=== PATIENT | female | born 1995 ===

== ENCOUNTER 2021-06-25 04:10 | Inpatient (IN) | payer MEDICAID, OTHER ==
[2021-06-25] MEDS ORDERED: OXYTOCIN DRIP 30,000 MILLIUNITS/500 ML BAG IV ONE (04:32)
[2021-06-25] MEDS ORDERED: LIDOCAINE (2%) 20 MG/1 ML VIAL 20 ML MDV INFILTRATI ONE ×2 (04:32→05:05)
[2021-06-25] MEDS ORDERED: LACTATED RINGERS 1,000 ML ONE (04:34)
[2021-06-25] MEDS ORDERED: miSOPROStol 200 MCG TAB ONE (04:43)
[2021-06-25] MEDS ORDERED: miSOPROStol 200 MCG TAB PR PRN (05:05)
[2021-06-25] MEDS ORDERED: ACETAMINOPHEN 325 MG TAB PO PRN ×2 (05:05→05:09)
[2021-06-25] MEDS ORDERED: LOPERAMIDE 2 MG CAP PO PRN (05:05)
[2021-06-25] MEDS ORDERED: MINERAL OIL 30 ML ORAL LIQD PO PRN (05:05)
[2021-06-25] MEDS ORDERED: fentaNYL 100 MCG/2 ML INJ IV PRN (05:05)
[2021-06-25] MEDS ORDERED: CARBOPROST TROMETHAMINE 250 MCG/1 ML INJ IM PRN (05:05)
[2021-06-25] MEDS ORDERED: OXYTOCIN 10 UNIT/1 ML INJ IM PRN (05:05)
[2021-06-25] MEDS ORDERED: TERBUTALINE 1 MG/1 ML INJ SUB-Q PRN (05:05)
[2021-06-25] MEDS ORDERED: BUTORPHANOL 2 MG/1 ML INJ IV PRN (05:05)
[2021-06-25] MEDS ORDERED: METHYLERGONOVINE MALEATE 0.2 MG/ML VIAL IM PRN (05:05)
[2021-06-25] MEDS ORDERED: ePHEDrine SULFATE 50 MG/1 ML INJ IV PRN (05:05)
[2021-06-25] MEDS ORDERED: MAGNESIUM HYDROXIDE (MOM) ORAL LIQD UDC PO PRN (05:09)
[2021-06-25] MEDS ORDERED: HYDROcodone/ACETAMINOPHEN 5-325 MG TAB PO PRN (05:09)
[2021-06-25] MEDS ORDERED: LANOLIN/ZINC/DIMETHICONE (LANSINOH) 7 GM TP PRN (05:09)
[2021-06-25] MEDS ORDERED: WITCH HAZEL/ GLYCERIN PAD TP PRN (05:09)
--- NOTE | 2021-06-25 05:14 | History and Physical Report ---
History of Present Illness Date of examination: 06/25/21 Date of admission: 06/25/21 04:10 Chief complaint: Contractions, labor. History of present illness: 25 year old presents with complaint of contractions and needing to push. Patient received care at [facility] and patient brings records with her. LMP 09/16/2020. EDC 06/23/2021. significant for the following: previous section and 1 successful , excessive weight gain during . labs are as follows: O+, antibody screen negative, rubella immune, hepatitis B surface antigen negative, HIV negative, RPR nonreactive, gonorrhea negative, chlamydia negative, AFP negative, 1 hour sugar test 99, GBS negative. Past History Past Medical History: no pertinent history Past Surgical History: section [employer] History: denies: abnormal PAP smear, chlamydia, gonorrhea, hepatitis B, hepatitis C, herpes, HIV, syphilis, trichomonas Family/Genetic History: cancer Social history: lives with family, full code. denies: smoking, alcohol abuse, prescription drug abuse, IV drug use - Obstetrical History Expected Date of Delivery: 06/23/21 Actual Gestation: 40 Week(s) 2 Day(s) : 3 Para: 2 Hx # Term Pregnancies: 2 Number of Pregnancies: 0 Spontaneous Abortions: 0 Induced : 0 Number of Living Children: 2 Medications and Allergies Allergies Allergy/AdvReac Type Severity Reaction Status Date / Time No Known Allergies Allergy Unverified 06/25/21 04:15 Active Meds: Active Medications Acetaminophen (Acetaminophen 325 Mg Tab) 650 mg PO Q4H PRN PRN Reason: Pain, Mild (1-3) Acetaminophen (Acetaminophen 325 Mg Tab) 650 mg PO Q4H PRN PRN Reason: Pain MILD(1-3)/Fever >100.5/[place] Hydrocodone Bitart/Acetaminophen (Hydrocodone/Acetaminophen 5-325 Mg Tab) 2 each PO Q6H PRN PRN Reason: Pain, Moderate (4-6) Butorphanol Tartrate (Butorphanol 2 Mg/1 Ml Inj) 1 mg IV Q2H PRN PRN Reason: Pain, Moderate(4-6) LABOR PAIN Carboprost Tromethamine (Carboprost Tromethamine 250 Mcg/1 Ml Inj) 250 mcg IM ONCE PRN PRN Reason: Uterine Bleeding Docusate Sodium (Docusate Sodium 100 Mg Cap) 100 mg PO BID JULIO C Ephedrine Sulfate (Ephedrine Sulfate 50 Mg/1 Ml Inj) 10 mg IV Q2M PRN PRN Reason: Hypotension Fentanyl (Fentanyl 100 Mcg/2 Ml Inj) 100 mcg IV Q2H PRN PRN Reason: Pain,Severe (7-10) LABOR PAIN Lactated Ringer's (Lactated Ringers) 1,000 mls @ 125 mls/hr IV DIRECT JLUIO C Oxytocin/Sodium Chloride (Pitocin/Ns 30 Unit/500ml) 30 units in 500 mls @ 40 mls/hr IV TITR JULIO C; Protocol Ibuprofen (Ibuprofen 600 Mg Tab) 600 mg PO Q6H JULIO C Lidocaine (Lidocaine (2%) 20 Mg/1 Ml Vial 20 Ml Mdv) 20 ml INFILTRATI ONCE ONE Stop: 06/25/21 05:06 Loperamide HCl (Loperamide 2 Mg Cap) 2 mg PO ONCE PRN PRN Reason: give with Hemabate Magnesium Hydroxide (Magnesium Hydroxide (Mom) Oral Liqd Udc) 30 ml PO HS PRN PRN Reason: Constipation Methylergonovine Maleate (Methylergonovine Maleate 0.2 Mg/Ml Vial) 0.2 mg IM ONCE PRN PRN Reason: Uterine Bleeding Mineral Oil (Mineral Oil 30 Ml Oral Liqd) 30 ml PO QHS PRN PRN Reason: Constipation Misoprostol (Misoprostol 200 Mcg Tab) 800 mcg MN ONCE PRN PRN Reason: Uterine Bleeding Multi-Ingredient Ointment (Lanolin/Zinc/Dimethicone (Lansinoh) 7 Gm) 1 applic TP PRN PRN PRN Reason: Sore Nipples Multivitamins/Iron/Calcium ( Amm94-Ju Fumarate-Folic Acid Vit Tab) 1 each PO QDAY JULIO C Oxytocin (Oxytocin 10 Unit/1 Ml Inj) 10 unit IM ONCE PRN PRN Reason: Uterine Bleeding Sodium Chloride (Sodium Chloride 0.9% 10 Ml Flush Syringe) 10 ml IV PRN NR Terbutaline Sulfate (Terbutaline 1 Mg/1 Ml Inj) 0.25 mg SUB-Q ONCE PRN PRN Reason: Hyperstimulation/Hypertonicity Witch Jodie/Glycerin (Witch Jodie/ Glycerin Pad) 1 each TP PRN PRN PRN Reason: Hemorrhoid/cleansing/soothing Review of Systems All systems: negative (contractions, need to push) - Vital Signs Vital signs: Vital Signs Pulse BP 73 118/62 06/25/21 04:51 06/25/21 04:51 Temp Pulse Resp BP Pulse Ox 98.2 F 80 18 138/73 06/25/21 05:06 06/25/21 05:02 06/25/21 05:06 06/25/21 05:02 - Physical Exam Abdomen: Positive: normal appearance, soft. Negative: distention, tenderness, guarding, rigidity Genitourinary (Female): Positive: normal external genitalia, normal perenium. Negative: perineal/vulvar lesions Vagina: Positive: normal moisture Uterus: Positive: enlarged. Negative: tender Anus/Rectum: Positive: normal perianal skin Extremities: Positive: normal. Negative: tenderness - Obstetrical FHR: category 1 Uterine Contraction Monitor Mode: External Cervical Dilatation: 8 Cervical Effacement Percentage: 90 station: 0 Uterine Contraction Pattern: Regular Uterine Contraction Intensity: Strong/Firm Results All other labs normal. Assessment and Plan A: at 40 weeks, 2 days. Active advanced labor. Previous section. Previous . GBS negative. P: Admit. EFM. Epidural. Notified MD that patient is here in active labor with previous section done in [place] and vertical incision on skin. MD en route to hospital.
--- NOTE | 2021-06-25 05:14 | Procedure Note ---
OB Delivery Note - Delivery Date of Delivery: 06/25/21 - Vaginal Delivery presentation: vertex Delivery position: OA Intrapartum events: precipitous labor- <3hr Delivery induction: none Delivery monitor: external FHT, external uterine Route of delivery: Delivery placenta: spontaneous Delivery cord: 3 umbilical vessels Episiotomy: none Delivery laceration: 1st degree Delivery repair: vicryl Anesthesia: local Delivery comments: Spontaneous vaginal delivery at 04:38 of liveborn female infant weighing 8 lb. 15 oz. over first degree perineal laceration with apgars of 8/9. No nuchal cord. Delivery facilitated by delivery of posterior arm. Baby placed skin to skin with mom immediately after delivery; baby dried with warm blankets and suctioned with bulb syringe. Spontaneous cry and respirations. 3 vessel cord double clamped and cut (delayed cord clamping). Baby taken to radiant warmer for further suctioning. Cord blood obtained. Spontaneous delivery of intact placenta and membranes by harvey mechanism at 04:42. EBL 300 cc. Pitocin to IV fluids after delivery of placenta. Fundus firm and midline. Small first degree perineal laceration repaired with 2-0 vicryl in usual sterile fashion. No other lacerations noted. Vaginal sweep negative. Sponge count correct. MD present in house.
[2021-06-25] MEDS ORDERED: LACTATED RINGERS 1,000 ML IV SCH (05:15)
[2021-06-25] MEDS ORDERED: OXYTOCIN DRIP 30 UNITS/500 ML BAG IV SCH (06:00)
[2021-06-25 06:38] LABS: Hematocrit 36.7 % (30.3-42.9); Hemoglobin 12.5 gm/dl (10.1-14.3); Mean Corpuscular HGB Conc 34 % (30-34); Mean Corpuscular Volume 90 fl (79-97); Platelet Count 243 K/mm3 (140-440); Red Blood Count 4.07 M/mm3 (3.65-5.03); Red Cell Distribution Width 15.7 % (13.2-15.2)
[2021-06-25] MEDS: PRENATAL VIT27-FE FUMARATE-FOLIC ACID VIT TAB PO SCH (10:17)
[2021-06-25] MEDS: DOCUSATE SODIUM 100 MG CAP PO SCH (10:17)
[2021-06-25] MEDS: IBUPROFEN 600 MG TAB PO SCH ×3 (10:17→23:51)
[2021-06-25 17:16] LABS: Hematocrit 35.8 % (30.3-42.9); Hemoglobin 12.1 gm/dl (10.1-14.3)
--- NOTE | 2021-06-26 11:03 | Progress Note ---
Assessment and Plan A: day 1 S/P . P: Continue routine care. Anticipate discharge home tomorrow if patient continues to do well. Subjective - Subjective Date of service: 06/26/21 Principal diagnosis: day 1 S/P Patient reports: appetite normal, voiding normally, pain well controlled, flatus, ambulating normally, no dizzy ambulation, no nauseated [place]: doing well Objective - Vital Signs Latest vital signs: Vital Signs Temp Pulse Resp BP Pulse Ox Pulse Ox 06/26/21 08:42 98.5 F 66 18 106/58 98 06/26/21 08:21 100 06/26/21 02:09 97.6 F 63 18 111/65 99 06/25/21 22:04 100 06/25/21 19:50 100 06/25/21 17:46 98.5 F 69 18 118/76 99 06/25/21 13:05 97.8 F 69 18 117/69 98 Intake and Output 06/25/21 06/26/21 06/26/21 23:59 07:59 15:59 Intake Total 1200 240 120 Balance 1200 240 120 Intake: Oral 600 240 120 Intake, Free Water 600 Other: Total, Intake Amount 120 120 120 # Voids Void 1 1 1 - Exam Cardiovascular: Present: Regular rate Lungs: Present: Clear to auscultation Abdomen: Present: normal appearance, soft, normal bowel sounds. Absent: distention, tenderness, guarding, rigidity Uterus: Present: normal, firm, fundal height below umbilicus. Absent: bogginess Extremities: Present: normal. Absent: tenderness, edema
[2021-06-26] MEDS: DOCUSATE SODIUM 100 MG CAP PO SCH (12:11)
[2021-06-26] MEDS: PRENATAL VIT27-FE FUMARATE-FOLIC ACID VIT TAB PO SCH (12:11)
[2021-06-26] MEDS: IBUPROFEN 600 MG TAB PO SCH ×2 (12:11→18:38)
[2021-06-27] MEDS: DOCUSATE SODIUM 100 MG CAP PO SCH ×2 (00:06→12:09)
[2021-06-27] MEDS: IBUPROFEN 600 MG TAB PO SCH ×3 (00:08→12:09)
--- NOTE | 2021-06-27 06:51 | Progress Note ---
Assessment and Plan A: day 2 S/P . P: Discharge patient home today. Discussed with patient discharge instructions and warning signs. Advised patient to continue taking her vitamins at home. Advised patient to avoid intercourse, lifting, housework, tub baths (patient may take showers). Advised patient to follow up at [facility] in 6 weeks. Patient voiced understanding of all instructions. Subjective - Subjective Date of service: 06/27/21 Principal diagnosis: day 2 S/P Patient reports: appetite normal, voiding normally, pain well controlled, flatus, ambulating normally, no dizzy ambulation, no nauseated : doing well Objective - Vital Signs Latest vital signs: Vital Signs Temp Pulse Resp BP Pulse Ox Pulse Ox 06/27/21 01:08 18 06/27/21 00:29 97.6 F 64 18 101/56 98 06/27/21 00:08 18 06/26/21 20:00 100 06/26/21 19:38 18 06/26/21 18:39 100 06/26/21 16:57 98.3 F 62 18 106/65 97 06/26/21 16:33 100 06/26/21 14:06 100 06/26/21 12:18 100 06/26/21 10:00 100 06/26/21 08:42 98.5 F 66 18 106/58 98 06/26/21 08:21 100 Intake and Output 06/26/21 06/26/21 06/27/21 15:59 23:59 07:59 Intake Total 360 840 240 Balance 360 840 240 Intake: Oral 120 480 Intake, Free Water 240 360 240 Other: Total, Intake Amount 120 480 # Voids Void 1 1 1 - Exam Cardiovascular: Present: Regular rate Lungs: Present: Clear to auscultation Abdomen: Present: normal appearance, soft. Absent: distention, tenderness, guarding, rigidity Uterus: Present: normal, firm, fundal height below umbilicus. Absent: bogginess, tenderness Extremities: Present: normal. Absent: tenderness, edema
--- NOTE | 2021-06-27 06:55 | Discharge Summary ---
Providers - Providers Date of Admission: 06/25/21 04:10 Date of discharge: 06/27/21 Attending physician: MELODY RIOS MD Primary care physician: MELODY RIOS MD Hospitalization Reason for admission: active labor Delivery: , Episiotomy: none Laceration: 1st degree Other procedures: none complications: none Discharge diagnosis: IUP at term delivered baby: female Pertinent studies: Labs Hospital course: Normal hospital course Condition at discharge: Good Disposition: DC-01 TO HOME OR SELFCARE - Discharge Diagnoses (1) Term delivered Status: Acute Plan - Provider Discharge Summary Activity: routine, no sex for 6 weeks, no heavy lifting 4 weeks, no strenuous exercise Diet: routine Instructions: routine Additional instructions: Continue taking your vitamins at home. Follow up at [facility] in 6 weeks. Call your doctor immediately for: * Fever > 100.5 * Heavy vaginal bleeding ( >1 pad per hour) * Severe persistent headache * Shortness of breath * Reddened, hot, painful area to leg or breast - Follow up plan Follow up: MELODY RIOS MD [Primary Care Provider] - 6 Weeks Forms: [facility] Discharge Summary, Discharge Signature Page
[2021-06-27] MEDS: PRENATAL VIT27-FE FUMARATE-FOLIC ACID VIT TAB PO SCH (12:09)
[2021-06-27 13:47] VITALS: BP 113/71
== END 2021-06-27 14:05 | disposition home or self-care (01) | DRG 807 ==
LOC: LD 04:10 → OB 06:20
PROC: 10E0XZZ Delivery of Products of Conception, External Approach (ICD-10-PCS; principal; 2021-06-25)
PROC: 0HQ9XZZ Repair Perineum Skin, External Approach (ICD-10-PCS; 2021-06-25)
DX: O34.211 Maternal care for low transverse scar from previous cesarean delivery (principal); Z37.0 Single live birth; Z3A.40 40 weeks gestation of pregnancy; O70.0 First degree perineal laceration during delivery; Z20.822 Contact with and (suspected) exposure to COVID-19
CPT/HCPCS: 36415; 59025; 85014; 85018; 85027; 86592; 86850; 86900; 86901; 96360; G0378; U0003